=== PATIENT | male | born 1970 | race Two or more races ===

== ENCOUNTER 2024-07-07 08:30 | Day surgery (SDC) | payer MEDICAID, SELFPAY ==
[2024-07-06 14:48] VITALS: BMI 32.8
[2024-07-07] VITALS (14 sets, daily range): BP systolic 106–121; BP diastolic 63–75; PULSE 53–60; RESP 12–18; TEMP 36.5–36.9; O2SAT 95–99; BMI 31.8
--- NOTE | 2024-07-07 10:30 | SUR.PHASEII ---
1030 patient arrived to recovery, report from Angela ZABALA
--- NOTE | 2024-07-07 12:05 | SUR.PHASEII ---
1205 Patient meets discharge criteria from recovery, awake and alert, breathing unlabored, vital signs stable, denies pain, patient ate a pudding and drinking water; tolerating well, denies nausea, patient assisted with dressing into his clothing by his , discharge instructions given to patient and patients with the assistance of the Tajik telephone promotion manager Antonia ID#[id number], patients signed discharge instructions. Patient given all his belognigns prior to discharge, transported via wheelchair and left in a private vehicle.
== END 2024-07-07 12:05 | disposition home or self-care (01) ==
PROVIDERS: PCP Physician Assistant; Referring Provider Surgery; Visit Provider Surgery
PROC: 0DJD8ZZ Inspection of Lower Intestinal Tract, Via Natural or Artificial Opening Endoscopic (ICD-10-PCS; CPT 45378; principal; 2024-07-07 11:30)
DX: Z12.11 Encounter for screening for malignant neoplasm of colon (principal); K57.30 Diverticulosis of large intestine without perforation or abscess without bleeding; Z80.0 Family history of malignant neoplasm of digestive organs
CPT/HCPCS: 45378; J1200; J2250; J3010

== ENCOUNTER 2024-07-27 14:19 | Outpatient (AMB) | payer MEDICAID, SELFPAY ==
--- NOTE | 2024-07-27 14:34 | PD.GSCLVISIT ---
Vital Signs - [facility] 07/27/24 14:35 Height 1.68 m Height Method Stated Weight 90.718 kg Weight Measurement Method Standing Scale BMI 32.1 BP 99/62 Blood Pressure Source Automatic Cuff Blood Pressure Location Right Upper Arm Position Sitting Respiration 19 Pulse 62 Pulse Source Monitor Temp 98.5 F Temp Source Temporal Artery Scan Pulse Oximetry (%) 96 Oxygen Delivery Method Room Air Med/Allergies Allergies & Medications Allergies No Known Allergies Allergy (Verified 07/27/24 14:35) Medication Reconciliation aspirin 81 mg chewable tablet 81 mg PO .QD 07/07/24 [History Confirmed 07/27/24] Held on 07/07/24. Instructions: Resume on 07/08/24. cholecalciferol (vitamin D3) 125 mcg (5,000 unit) capsule 125 mcg PO .QD 07/07/24 [History Confirmed 07/27/24] clopidogrel 75 mg tablet 75 mg PO .QD 07/07/24 [History Confirmed 07/27/24] Held on 07/07/24. Instructions: Resume on 07/08/24. lisinopril 40 mg tablet 40 mg PO .QD 07/07/24 [History Confirmed 07/27/24] metformin 500 mg tablet,extended release 24 hr 500 mg PO QPM 07/07/24 [History Confirmed 07/27/24] metoprolol tartrate 25 mg tablet 25 mg PO Q12H 07/07/24 [History Confirmed 07/27/24] MA Intake Visit Data Collection New Patient or Established: Established Patient (seen at [facility] within 3 years) Reason for Visit:: F/U COLONOSCOPY RESULTS Pain Present Currently: No Emergency Department Technician Required: No PCP or OBGYN visit in last 3 months: Yes Hx Now: No Do You Feel Safe at Home: Yes Authorities Contacted: N/A Smoking Status Smoking Status: Never smoker Immunization / Flu Flu Vaccine in the Last 12 Months: No Flu Vaccine Exclusion Criteria: No Exclusion Criteria Past Medical History Past Medical History NEUROLOGIC: Negative Neurological Disorders or Seizures CARDIAC: Negative Cardiac Disorders or Congestive Heart Failure RESPIRATORY: Negative Chronic Obstructive Pulmonary Disease (COPD) or Asthma GASTROINTESTINAL: Negative Gastrointestinal Disorders GENITOURINARY: Negative Genitourinary Disorders or Renal Disease MUSCULOSKELETAL: Negative Musculoskeletal Disorders ENDOCRINE: Positive Diabetes Mellitus Type 2; Negative Endocrine Disorders or Diabetes Mellitus Type 1 HEMATOLOGIC: Negative Blood Disorders, Anemia or Sickle Cell Disease OTHER HISTORY: Negative Hospitalization, Autoimmune Disease, Down Syndrome, Developmental Delay, Falls, Blood Transfusions, Anesthesia Reactions, MRSA, Chicken Pox, Measles, Mumps or Cancer Family History FAMILY HISTORY: Negative Family Cardiac Disorders Surgical History SURGICAL: Positive Valve Replacement; Negative Endocrine Surgery, Ear Surgery, Nephrectomy, Joint Replacement, Neurologic Surgery or Mastectomy Social History SMOKING STATUS: Smoking status: Never smoker ALCOHOL: Alcohol Intake: Never HOUSING: Housing: House LIVES WITH: Lives With: Spouse Travel Risk Travel Hx Recent Travel: No HPI HPI Narrative 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 Pt reports he feels well overall with no complaints ROS Review of Systems Systems Reviewed: All systems reviewed, normal except as documented Objective/Exam General General Appearance: alert, cooperative and well groomed Resp Respiratory exam: Absent respiratory distress Results Colonoscopy report reviewed: diverticulosis Assessment & Plan Diagnosis / Problem List (1) Encounter to discuss colonoscopy results: Status: Acute Assessment & Plan: 53M s/p screening colonoscopy which was negative aside from diverticulosis. I recommended increased water and fiber intake, and repeat screening in 5 years due to his history of colon CA in his father. All questions were answered and pt expressed understanding Office Procedures GNS Level of Care Nursing/Assessment Patient Status: Established Patient Nursing Assessment/Reassesment: Medication Reconciliation, Update PMH in EMR and Vital Signs Coordination of Care: Complex Care and Chronic Disease 1-5, Education Complex Pt/Fam, Consent,records obtained, informed consent, Results/Orders obtained and Staff clarify orders Established Patient Charge Established Patient Point Assignment: 95 Established Patient Point Charge: EP Level 3 (80-115) Patient Portal Questionaires Social History Living Situation History Housing: House Housing Other:: subacute Tobacco History Smoking Status: Never smoker Alcohol History Alcohol Intake: Never Domestic Abuse History Do You Feel Safe at Home: Yes Review of Systems Report any current symptoms Only answer those that you have currently: Past Medical History Past Medical History Have you ever been diagnosed with any of the following: Neurological Problems Seizures: No Cardiology Problems Congestive Heart Failure: No Respiratory Problems Chronic Obstructive Pulmonary Disease (COPD): No Asthma: No Genital/Urinary Problems Renal Disease: No Endocrine Problems Diabetes Mellitus Type 1: No Diabetes Mellitus Type 2: Yes Blood Problems Anemia: No Sickle Cell Disease: No Other Problems Hospitalization: No Autoimmune Disease: No Down Syndrome: No Developmental Delay: No Falls: No Blood Transfusions: No Anesthesia Reactions: No MRSA: No Chicken Pox: No Measles: No Mumps: No Cancer: No Surgical History Valve Replacement: Yes
[2024-07-27 14:35] VITALS: BP 99/62; PULSE 62; RESP 19; TEMP 36.9; O2SAT 96; BMI 32.1
== END 2024-07-27 15:07 | disposition home or self-care (01) ==
PROVIDERS: PCP Physician Assistant; Referring Provider Physician Assistant; Supervising Provider Surgery; Visit Provider Surgery
DX: Z71.2 Person consulting for explanation of examination or test findings (principal); K57.90 Diverticulosis of intestine, part unspecified, without perforation or abscess without bleeding; Z80.0 Family history of malignant neoplasm of digestive organs
CPT/HCPCS: 99213; G0463

== ENCOUNTER 2025-01-03 19:19 | Emergency (ER) | payer MEDICAID, SELFPAY ==
[2025-01-03] VITALS (7 sets, daily range): BP systolic 104–118; BP diastolic 53–68; PULSE 51–60; RESP 15–20; TEMP 36.6–36.9; O2SAT 92–99; BMI 30.1
--- NOTE | 2025-01-03 20:41 | PD.EDRME ---
Rapid Medical Screening Exam RME Arrival date/time: 01/03/25 19:19 Chief Complaint: Shortness of Breath/Dyspnea Time Seen by Provider: 01/03/25 20:12 Vital signs: Vital Signs Temperature 98.4 F 01/03/25 19:42 Pulse Rate 60 01/03/25 19:42 Respiratory Rate 20 01/03/25 19:42 Blood Pressure 118/68 01/03/25 19:42 Pulse Oximetry (%) 95 01/03/25 19:42 Oxygen Delivery Method Room Air 01/03/25 19:42 Vital signs reviewed by provider: Yes RME Narrative: 54-year-old male presents the ED with complaint of fatigue, weakness, slow heart rate, shortness of breath and mild left anterior chest pressure for 2 weeks. He had an aortic valve replacement 3 years ago by his plant control aide at [facility]. The plant control aide was following him every 3 to 4 months until this past August. He felt he was stable and no longer needed to have regular checkups. He has not contacted his primary care physician or his plant control aide regarding these new symptoms. He denies any fever or chills, nausea, vomiting, or diarrhea. I have greeted and performed a focused initial assessment of this patient. A comprehensive ED assessment and evaluation of the patient, analysis of all test results, and completion of the medical decision making process will be conducted by additional ED providers.
--- NOTE | 2025-01-03 21:21 | PD.EDSOB ---
ED SOB =RME/HPI General Chief Complaint: Shortness of Breath/Dyspnea Stated Complaint: SOB, DIZZINESS, WEAKNESS FOR 2 WEEKS Time Seen by Provider: 01/03/25 20:12 Arrival date/time: 01/03/25 19:19 RME / HPI RME / HPI Narrative: 54-year-old male presents the ED with complaint of fatigue, weakness, slow heart rate, shortness of breath and mild left anterior chest pressure for 2 weeks. He had an aortic valve replacement 3 years ago by his security systems administrator at [facility]. The security systems administrator was following him every 3 to 4 months until this past August. He felt he was stable and no longer needed to have regular checkups. He has not contacted his primary care physician or his security systems administrator regarding these new symptoms. He denies any fever or chills, nausea, vomiting, or diarrhea. I have greeted and performed a focused initial assessment of this patient. A comprehensive ED assessment and evaluation of the patient, analysis of all test results, and completion of the medical decision making process will be conducted by additional ED providers. This section includes all my notes and documentations, including HPI, PE, and ED course. Yo Anaya MD HPI: 54yo male here with complaints of generalized weakness, fatigue, and shortness of breath for the last couple of weeks. No chest pain. No fever. Occasional cough. No tobacco use. No other complaints reported. ROS: All negative except as documented in HPI. Physical Exam: General: Alert and oriented. No acute distress when remaining still. Eyes: Conjunctivae and lids clear. ENT: No nasal congestion. Neck: Supple. Heart: RRR. Lungs: No respiratory distress. Mildly decreased air movement with rhonchi. Abdomen: Soft and nontender. Normal bowel sounds. No distension. No rebound or guarding. Back: No CVA tenderness. Skin: Warm and dry. Neuro: Alert and oriented X 3. I reviewed all diagnostic test results. My interpretation of the EKG is sinus rhythm with no acute ST?T changes. My interpretation of the chest x-ray is increased bronchial markings. My review of the CT chest report is NAD. Blood tests are unremarkable. At this point, diagnoses include lower respiratory infection. Treatment here included Tylenol with Codeine, Duoneb, Solumedrol, and Zithromax. Significant improvement noted. Recommend outpatient management. Based on my best medical judgment, made decision no further evaluation or treatment indicated at this time. Patient understands and agrees to the discharge instructions customized and printed, see below. Discharge instructions from Dr. Anaya: --After extensive evaluation, there is no life-threatening condition. Such as heart attack or pulmonary embolism (blood clots in your lungs) or pneumothorax (collapsed lung). But you have bronchitis. --No physical exertion for 3 days to help rest the lungs. ?No smoking or exposure to smoking or pets or dust or humidity. --Zithromax to kill the germs causing the bronchitis. --Prednisone to help decrease the swelling in the airways. --Albuterol 2 puffs every 4-6 hours for 24 hours to help keep the airways open. Then as needed for cough or shortness of breath. --See a private doctor on 01/08/2025 if not completely better. --Seek immediate medical care with worsening or with any concerns. Yo Anaya MD Related Data Home Medications ?Medication ?Instructions ?Recorded ?Confirmed aspirin 81 mg chewable tablet 81 mg PO .QD 07/07/24 07/27/24 Held on 07/07/24. Instructions: Resume on 07/08/24. cholecalciferol (vitamin D3) 125 125 mcg PO .QD 07/07/24 07/27/24 mcg (5,000 unit) capsule clopidogrel 75 mg tablet 75 mg PO .QD 07/07/24 07/27/24 Held on 07/07/24. Instructions: Resume on 07/08/24. lisinopril 40 mg tablet 40 mg PO .QD 07/07/24 07/27/24 metformin 500 mg tablet,extended 500 mg PO QPM 07/07/24 07/27/24 release 24 hr metoprolol tartrate 25 mg tablet 25 mg PO Q12H 07/07/24 07/27/24 Previous Rx's ?Medication ?Instructions ?Recorded albuterol sulfate 90 mcg/actuation 2 puff inhalation Q6H PRN 01/04/25 aerosol inhaler shortness of breath or wheezing #8.5 grams azithromycin 500 mg tablet 500 mg PO QDAY 3 days #3 tabs 01/04/25 (Zithromax TRI-LEVY) prednisone 50 mg tablet 50 mg PO QDAY #3 tabs 01/04/25 Allergies Allergy/AdvReac Type Severity Reaction Status Date / Time No Known Allergies Allergy Verified 01/03/25 19:20 Review of Systems Review of Systems Systems Reviewed: All systems reviewed, normal except as documented Past Medical History Past Medical History NEUROLOGIC: Negative Neurological Disorders or Seizures CARDIAC: Negative Cardiac Disorders or Congestive Heart Failure RESPIRATORY: Negative Chronic Obstructive Pulmonary Disease (COPD) or Asthma GASTROINTESTINAL: Negative Gastrointestinal Disorders GENITOURINARY: Negative Genitourinary Disorders or Renal Disease MUSCULOSKELETAL: Negative Musculoskeletal Disorders ENDOCRINE: Positive Diabetes Mellitus Type 2; Negative Endocrine Disorders or Diabetes Mellitus Type 1 HEMATOLOGIC: Negative Blood Disorders, Anemia or Sickle Cell Disease OTHER HISTORY: Negative Hospitalization, Autoimmune Disease, Down Syndrome, Developmental Delay, Falls, Blood Transfusions, Anesthesia Reactions, MRSA, Chicken Pox, Measles, Mumps or Cancer Family History FAMILY HISTORY: Negative Family Cardiac Disorders Surgical History SURGICAL: Positive Valve Replacement; Negative Endocrine Surgery, Ear Surgery, Nephrectomy, Joint Replacement, Neurologic Surgery or Mastectomy Social History SMOKING STATUS: Never smoker ED Exam Narrative Physical exam: As noted in HPI. Course Course Course Narrative: CXR is ordered for determinnig the etiology of shortness of breath. Quality Measures none Orders Category Date Time Status Bedside COVID-19 Antigen Test NOW Care 01/03/25 21:26 Completed Bedside Influenza A&B Antigen Test NOW Care 01/03/25 21:[address] Screening NOW Care 01/03/25 21:27 Completed EKG (ED ONLY) *Do not use* NOW Care 01/03/25 21:27 Completed Saline [Insert IV] NOW Care 01/03/25 21:[address] chest wo con Stat Exams 01/03/25 22:41 Completed EKG (ED Only) Stat Exams 01/03/25 21:27 Draft XR chest 1V portable Stat Exams 01/03/25 21:27 Completed BNP [B-Type Natriuretic Peptide] Stat Lab 01/03/25 21:49 Completed Bilirubin,Direct Stat Lab 01/03/25 21:49 Completed CBC Stat Lab 01/03/25 21:49 Completed CMP [Comprehensive Metabolic Panel] Stat Lab 01/03/25 21:49 Completed D-Dimer Stat Lab 01/03/25 21:49 Completed Free T4 (Free Thyroxine) Stat Lab 01/03/25 21:49 Completed Magnesium Stat Lab 01/03/25 21:49 Completed TSH [Thyroid Stimulating Hormone] Stat Lab 01/03/25 21:49 Completed Troponin I Stat Lab 01/03/25 21:49 Completed ACETAMINOPHEN w/COD 300-30 [Tylenol w/Cod #3] Med 01/03/25 23:52 Discontinued 2 tab PO X1 ONE Albuterol/Ipratr Rt Cassidy [Duoneb Rt Cassidy] Med 01/03/25 21:26 Discontinued 3 ml INH X1 ONE Azithromycin Po [Zithromax PO] Med 01/04/25 00:44 Discontinued 500 mg PO X1 ONE MethylPREDNISolone.* [SoluMEDROL Inj] Med 01/03/25 21:26 Discontinued 125 mg IVP X1 ONE Vital Signs Vital signs: Vital Signs Temperature 98.4 F 01/03/25 19:42 Pulse Rate 60 01/03/25 19:42 Respiratory Rate 20 01/03/25 19:42 Blood Pressure 118/68 01/03/25 19:42 Pulse Oximetry (%) 95 01/03/25 19:42 Oxygen Delivery Method Room Air 01/03/25 19:42 Shortness of Breath / Dyspnea MDM Narrative MDM Narrative:: 54yo male here with complaints of generalized weakness, fatigue, and shortness of breath for the last couple of weeks. No chest pain. No fever. Occasional cough. No tobacco use. No other complaints reported. Patient data External records reviewed:: [facility] previous records (Per chart review, patient was admitted here on 11/08/21 for acute febrile illness.) Clinical information provided by:: patient Social determinants that could affect healthcare access:: none Patient has the following chronic illnesses:: DM, HTN, aortic valve replacement How is presenting disease/condition affected by chronic disease/condition?: exacerbated by Evaluation data The following diagnostics were reviewed and interpreted by me:: lab results, radiology exam(s) and EKG tracing(s) Lab and/or radiology exams considered but not ordered:: none Interpretation Summary: I reviewed all diagnostic test results. My interpretation of the EKG is sinus rhythm with no acute ST?T changes. My interpretation of the chest x-ray is increased bronchial markings. My review of the CT chest report is NAD. Blood tests are unremarkable. Medications / Prescriptions Medications or Prescriptions considered but not ordered:: none Medication administrations:: Medication Administration History Discontinued Medications Acetaminophen/Codeine Phosphate (Acetaminophen W/Cod 300-30 Tablet) 2 tab PO X1 ONE Stop: 01/03/25 23:53 Last Admin: 01/04/25 02:05 Dose: 2 tab Documented By: Albuterol/Ipratropium (Albuterol/Ipratropium (Duoneb) Rt Cassidy 3 Ml Nebu) 3 ml INH X1 ONE Stop: 01/03/25 21:27 Last Admin: 01/03/25 21:45 Dose: 3 ml Documented By: BARRY Azithromycin (Azithromycin 250 Mg Tablet) 500 mg PO X1 ONE Stop: 01/04/25 00:45 Last Admin: 01/04/25 02:06 Dose: 500 mg Documented By: Methylprednisolone Sodium Succinate (Methylprednisolone Sod Succ 62.5 Mg/Ml 2ml Vial) 125 mg IVP X1 ONE Stop: 01/03/25 21:27 Last Admin: 01/03/25 22:20 Dose: 125 mg Documented By: ANT Tylenol with Codeine, Duoneb, Solumedrol, and Zithromax. Consultations Consultation(s) initiated? (list below): No Diagnosis Shortness of Breath Differential Diagnosis: acute exacerbation of chronic obstructive airways disease, congestive heart failure, community acquired pneumonia, asthma with exacerbation, pulmonary embolism and other (Lower respiratory infection) Most likely diagnosis given after review of the tests above:: Lower respiratory infection Admission Indicated Admission indicated?: not indicated Explain why admission is indicated or not indicated:: With significant improvement and no condition needing emergent intervention, there was no indication for admission. Admission Request Was there a request for admission?: No Disposition Plan Disposition Plan: Discharge Discharge Attestation Discharge Attestation: The patient and all family members were given an opportunity to ask questions and understood the discharge instructions. Discharge instructions specifically effects, indications for sooner follow up or return to the emergency department, and the expected course of current diagnosis. Patient condition: Stable Discharge Plan Plan Patient Disposition: HOME (Self Care) Prescriptions/Referrals Prescriptions/Med Rec: New prednisone 50 mg tablet 50 mg PO QDAY Qty: 3 0RF albuterol sulfate 90 mcg/actuation HFA aerosol inhaler 2 puff inhalation Q6H PRN (Reason: shortness of breath or wheezing) Qty: 8.5 0RF azithromycin [Zithromax TRI-LEVY] 500 mg tablet 500 mg PO QDAY 3 Days Qty: 3 0RF No Action aspirin 81 mg tablet,chewable 81 mg PO .QD Patient Comments: chew and swallow 1 tablet by mouth once daily metoprolol tartrate 25 mg tablet 25 mg PO Q12H Patient Comments: take 1 tablet by mouth twice a day with food metformin 500 mg tablet extended release 24 hr 500 mg PO QPM Patient Comments: take 1 tablet by mouth every evening cholecalciferol (vitamin D3) 125 mcg (5,000 unit) capsule 125 mcg PO .QD Patient Comments: take 1 capsule by mouth once daily clopidogrel 75 mg tablet 75 mg PO .QD Patient Comments: take 1 tablet by mouth once daily lisinopril 40 mg tablet 40 mg PO .QD Patient Comments: take 1 tablet by mouth once daily Referrals: Sidney Arreaga PA-C [Primary Care Provider] - In 1 week Problem List Clinical Impression: Lower respiratory infection Patient/Caregiver Discharge Instructions Discharge Activity: activity as tolerated Education Materials: ED Bronchitis, Antibiotics (Child) Additional Instructions: Discharge instructions from Dr. Anaya: --After extensive evaluation, there is no life-threatening condition.? Such as heart attack or pulmonary embolism (blood clots in your lungs) or pneumothorax (collapsed lung). But you have bronchitis. --No physical exertion for 3 days to help rest the lungs. ?No smoking or exposure to smoking or pets or dust or humidity. --Zithromax to kill the germs causing the bronchitis. --Prednisone to help decrease the swelling in the airways. --Albuterol 2 puffs every 4-6 hours for 24 hours to help keep the airways open. Then as needed for cough or shortness of breath. --See a private doctor on 01/08/2025 if not completely better. --Seek immediate medical care with worsening or with any concerns. Instrucciones de lia del Dr. Anaya: --Tras urthie evaluaci?n exhaustiva, no se observa ninguna afecci?n potencialmente mortal. [place] un ataque card?aco, ruthie embolia pulmonar (co?gulos de javan en los pulmones) o un neumot?rax (colapso pulmonar). Alison tiene bronquitis. --No realice juan?n esfuerzo f?sico maribel 3 d?as para ayudar a que los pulmones descansen. --No fume ni se exponga al humo, a las mascotas, al polvo ni a la humedad. --Zithromax para eliminar los g?rmenes que causan la bronquitis. --Prednisona para ayudar a disminuir la inflamaci?n de las v?as respiratorias. --Albuterol: 2 inhalaciones cada 4-6 horas maribel 24 horas para ayudar a mantener las v?as respiratorias abiertas. Posteriormente, seg?n sea necesario para la tos o la dificultad para respirar. --Consulte a un m?dico particular el 01/08/2025 si no mejora por completo. --Busque atenci?n m?dica inmediata si la condici?n empeora o tiene alguna inquietud. Print Language: Italian Stand Alone Forms: Lisa Award Info., Patient Portal Info Letter
--- NOTE | 2025-01-03 21:27 | EKG_ITS ---
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: : 1970 Requested By: Yo Castorena Order Number: [id number] Reading MD: Yo Castorena Measurements Intervals [place] Rate: 57 P: 36 SC: 199 QRS: 18 QRSD: 97 T: 74 QT: 431 QTc: 420 Interpretive Statements SINUS BRADYCARDIA POSSIBLE LEFT ATRIAL ENLARGEMENT [-0.1mV P-WAVE IN V1/V2] INCOMPLETE RIGHT BUNDLE BRANCH BLOCK [90+ ms QRS DURATION, TERMINAL R IN V1/V2, 40+ ms S IN I/aVL/V4/V5/V6] NONSPECIFIC T-WAVE ABNORMALITY Compared to ECG 11/09/2021 11:53:56 Incomplete right bundle-branch block now present Sinus tachycardia no longer present Possible ischemia no longer present T-wave abnormality still present /store/S0/[id number]/[id number].pdf
--- NOTE | 2025-01-03 21:27 | XR_ITS ---
Examination: AP chest single view TECHNIQUE: AP portable upright chest single view Date and time: January 03, 2025, 2134 hours Comparison November 10, 2021 INDICATIONS: Shortness of breath chest pressure beginning 2 weeks ago. FINDINGS: Aortic valve replacement satisfactory position Mild prominence left ventricle Mild vascular congestion. No lobar pneumonia or pulmonary edema IMPRESSION: Mild vascular congestion
--- NOTE | 2025-01-03 21:40 | PC.NURSE ---
After assessing pt, i discovered pt has lost some wt over the past few months and currently takes two different meds for HTN. pt does not check blood pressure. before he takes his meds. discussed with pt and his the fact that he should check BP before taking meds.
[2025-01-03] MEDS: ALBUTEROL/IPRATROPIUM (Duoneb) RT SOL 3 ML NEBU INH (21:45)
[2025-01-03 22:12] LABS: Basophils # (Auto) 0.1 Thou/mm3 (0.0-0.2); Basophils % (Auto) 1 % (0-2.5); Eosinophils # (Auto) 0.3 Thou/mm3 (0.0-0.5); Eosinophils % (Auto) 4 % (0-10); Hematocrit 38.0 % (41.0-53.0); Hemoglobin 13.0 g/dL (13.5-16.0); Immature Granulocytes Auto 0.04 Thou/mm3 (0.00-0.00); Lymphocytes # (Auto) 2.4 Thou/mm3 (1.0-4.8); Lymphocytes % (Auto) 36 % (10-50); Mean Corpuscular HGB Conc 34.2 g/dl (31.0-37.0); Mean Corpuscular Hemoglobin 30.7 pg (25.0-35.0); Mean Corpuscular Volume 90 fL (80-100); Monocytes # (Auto) 0.7 Thou/mm3 (0.0-0.8); Monocytes % (Auto) 10 % (0-12); Neutrophils # (Auto) 3.3 Thou/mm3 (1.8-7.7); Neutrophils % (Auto) 49 % (37-80); Nucleated Red Blood Cell # 0.00 Thou/mm3 (0.00-0.00); Nucleated Red Blood Cell % 0 /100 WBC (0); Platelet Count 178 Thou/mm3 (140-440); RDW Standard Deviation 43.8 fL (35.1-43.9); Red Blood Count 4.24 Miln/mm3 (4.50-5.90); White Blood Count 6.8 Thou/mm3 (3.8-10.6)
[2025-01-03] MEDS: MethylPREDNISolone SOD SUCC 62.5 MG/ML 2ML VIAL 125 MG IVP (22:20)
[2025-01-03 22:37] LABS: D-Dimer < 250 ng/mL (<600)
[2025-01-03 22:40] LABS: Alanine Aminotransferase 18 U/L (10-49); Albumin, Serum 4.1 gm/dL (3.5-5.0); Albumin/Globulin Ratio 1.9 (1.2-2.2); Alkaline Phosphatase 91 U/L (46-116); Anion Gap 10 (7-16); Aspartate Amino Transferase 19 U/L (0-34); B-Type Natriuretic Peptide 37 pg/mL (0-100); BUN/Creatinine Ratio 11 Ratio (12-20); Bilirubin,Direct < 0.1 mg/dL (0.0-0.3); Bilirubin,Total 0.2 mg/dL (0.3-1.2); Blood Urea Nitrogen 12 mg/dL (9-23); Calcium 8.9 mg/dL (8.3-10.6); Calcium (Corrected) 8.9 mg/dL (8.5-10.1); Carbon Dioxide 26.3 mMol/L (20.0-31.0); Chloride 109 mMol/L (98-107); Creatinine (Component) 1.1 mg/dL (0.6-1.3); Estimated Creatinine Clearance 85.5 mL/min (>60); Free T4 (Free Thyroxine) 0.97 ng/dL (0.89-1.76); Globulin 2.2 gm/dL (2.3-3.5); Glucose 143 mg/dL (74-106); Magnesium 2.0 mg/dL (1.6-2.6); Osmolality,Calculated 290 (275-295); Potassium 3.8 mMol/L (3.4-5.1); Sodium 145 mMol/L (136-145); Thyroid Stimulating Hormone 3.46 uIU/mL (0.55-4.78); Total Protein 6.3 gm/dL (5.7-8.2); Troponin I < 0.020 ng/mL (0.0-0.045); eGFR > 60 See Note
--- NOTE | 2025-01-03 22:41 | XR_ITS ---
Examination: CT chest, without intravenous contrast. Sagittal and coronal 2-D reconstructions. Exam date and time: January 03, 2025 11:10 PM Comparison comparison October 31, 2021 INDICATIONS: Shortness of breath weakness 2 weeks CTDI:vol (mGy) 17.1 DLP: (mGycm) 771 Technique: Multiple 3.0 mm axial sections of the chest to been obtained. Bone and lung density settings are obtained. Sagittal and coronal 2-D reconstructions have been obtained. Low dose protocols were performed. One or more of the following dose reduction techniques were used; automated exposure control, adjustment of the mA and/or KV according to patient size, use of iterative reconstruction technique. Findings: No thoracic aortic aneurysmal dilatation. Pulmonary artery segments are not enlarged. Mild enlargement cardiac contour No paratracheal tracheobronchial or bronchopulmonary adenopathy The pulmonary mass left upper lobe on the October 31, 2021 exam is no longer identified No pneumonia or pulmonary edema No visualized liver or splenic lesion Normal pancreas Kidneys partially visualized no hydronephrosis IMPRESSION: The pulmonary mass left upper lobe noted on the October 31, 2021 exam is no longer identified No mediastinal lymphadenopathy No pneumonia or pulmonary edema
[2025-01-04 00:06] VITALS: BP 114/59; PULSE 63; RESP 16; TEMP 37.3; O2SAT 94
[2025-01-04 01:00] VITALS: BP 108/52; PULSE 53; RESP 20; O2SAT 92
[2025-01-04 02:01] VITALS: BP 106/50; PULSE 60; RESP 15; O2SAT 92
[2025-01-04 02:03] VITALS: BP 108/62; PULSE 58; RESP 18; O2SAT 91
[2025-01-04] MEDS: ACETAMINOPHEN w/COD 300-30 TABLET 2 TAB PO (02:05)
[2025-01-04] MEDS: AZITHROMYCIN 250 MG TABLET 500 MG PO (02:06)
--- NOTE | 2025-01-04 02:29 | PC.NURSE ---
pt denies sx since soon after he arived. at bedside. alessandro maloneER staff assisted with communication. pt discharged ambulatory without dizziness.
== END 2025-01-04 02:30 | disposition home or self-care (01) ==
PROVIDERS: Emergency Provider Emergency Medicine; PCP Physician Assistant
DX: J22 Unspecified acute lower respiratory infection (principal); I10 Essential (primary) hypertension; R00.1 Bradycardia, unspecified; I45.10 Unspecified right bundle-branch block
CPT/HCPCS: 36415; 71045; 71250; 80053; 82248; 83735; 83880; 84439; 84443; 84484; 85025; 85379; 93005; 94640; 96374; 99283; A9270; J2919

== ENCOUNTER 2025-01-26 13:47 | Outpatient (AMB) | payer MEDICAID, SELFPAY ==
--- NOTE | 2025-01-26 13:51 | ORTHONT_ITS ---
Vital signs 01/26/25 14:05 Height 1.7 m Height Method Measured Weight 89.499 kg Weight Measurement Method Standing Scale BMI 30.9 BP 138/84 H Blood Pressure Source Automatic Cuff Blood Pressure Location Left Upper Arm Position Sitting Respiration 18 Pulse 62 Pulse Source Monitor Temp 97.8 F Temp Source Temporal Artery Scan Pulse Oximetry (%) 95 Oxygen Delivery Method Room Air Med/Allergies Allergies & Medications Allergies No Known Allergies Allergy (Verified 01/26/25 14:07) Medication Reconciliation aspirin 81 mg chewable tablet 81 mg PO .QD 07/07/24 [History Confirmed 01/26/25] Held on 07/07/24. Instructions: Resume on 07/08/24. cholecalciferol (vitamin D3) 125 mcg (5,000 unit) capsule 125 mcg PO .QD 07/07/24 [History Confirmed 01/26/25] clopidogrel 75 mg tablet 75 mg PO .QD 07/07/24 [History Confirmed 01/26/25] Held on 07/07/24. Instructions: Resume on 07/08/24. lisinopril 40 mg tablet 40 mg PO .QD 07/07/24 [History Confirmed 01/26/25] metformin 500 mg tablet,extended release 24 hr 500 mg PO QPM 07/07/24 [History Confirmed 01/26/25] metoprolol tartrate 25 mg tablet 25 mg PO Q12H 07/07/24 [History Confirmed 01/26/25] albuterol sulfate 90 mcg/actuation aerosol inhaler 2 puff inhalation Q6H PRN shortness of breath or wheezing #8.5 grams 01/04/25 [Rx Confirmed 01/26/25] Exam Exam Breathing is nonlabored. Patient has a normal mood and affect. Bilateral extremities were evaluated and demonstrates sensation intact to light touch. Palpable pedal pulses are present. No significant edema is present. Bilateral hips were examined. The patient has no pain with log roll of the hips. Internal rotation to 30 degrees and external rotation to 30 degrees is painless. Negative FADIR. Left knee was examined today. The left knee is in reasonable alignment. Range of motion from 0-120 degrees. Knee is stable to varus and valgus as well as AP translation with <5mm. Patient has a negative McMurrays. There is no pain with patellofemoral compression and no crepitus noted. The knee is nontender to palpation. The right knee was also examined. The right knee is in varus alignment. Range of motion from 0-115 degrees. Knee is stable to varus and valgus as well as AP translation with <5mm. Patient has a negative McMurrays. There is no pain with patellofemoral compression and no crepitus noted. The knee is tender to palpation medially. Assessment and Plan Problem List (1) Arthritis of knee, right: Status: Acute Plan: Patient is a pleasant 54-year-old male with Right knee pain and right knee arthritis. We discussed different treatment options. I would recommend an anti- inflammatory And injections and he not had conservative treatment. I like to see him with weightbearing x-rays like as well Office Procedures GNS Level of Care Nursing/Assessment Patient Status: Established Patient Nursing Assessment/Reassesment: Medication Reconciliation, Orthostatic Vitals, Update PMH in EMR and Vital Signs Coordination of Care: Complex Care and Chronic Disease 1-5, Education Complex Pt/Fam, Consent,records obtained, informed consent, Results/Orders obtained and Staff clarify orders Special Needs: Language special needs Established Patient Charge Established Patient Point Assignment: 105 Established Patient Point Charge: EP Level 3 (80-115) MA Intake Visit Data Collection New Patient or Established: New Patient (never been to [facility]) Reason for Visit:: RIGHT KNEE PAIN Seen by Clinical Staff ONLY (RN/MA): No Head Of Human Resources Required: Yes PCP or OBGYN visit in last 3 months: Yes Hx Now: No Do You Feel Safe at Home: Yes Authorities Contacted: N/A Questionairres Past Medical History Past Medical History Have you ever been diagnosed with any of the following: Neurological Problems Seizures: No Cardiology Problems Congestive Heart Failure: No Respiratory Problems Chronic Obstructive Pulmonary Disease (COPD): No Asthma: No Genital/Urinary Problems Renal Disease: No Endocrine Problems Diabetes Mellitus Type 1: No Diabetes Mellitus Type 2: Yes Blood Problems Anemia: No Sickle Cell Disease: No Other Problems Hospitalization: No Down Syndrome: No Developmental Delay: No Falls: No Blood Transfusions: No Anesthesia Reactions: No MRSA: No Chicken Pox: No Measles: No Mumps: No Cancer: No Surgical History Valve Replacement: Yes Subjective Visit Visit for: new patient and knee Immunization / Flu Flu Vaccine in the Last 12 Months: Yes Flu Vaccine Exclusion Criteria: Already Received History of Present Illness Chief complaint: RIGHT KNEE PAIN Date of injury / onset of symptoms: 20 YEARS Patient is a 54-year-old male with right knee pain and right knee arthritis. X- ray reports does have significant arthritis. He has tried physical therapy for several sessions. Has not had any injections. 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
--- NOTE | 2025-01-26 14:04 | XR_ITS ---
Examination: Bilateral AP knees single view Right knee PA lateral axial 3 views Technique: Bilateral AP knees standing single view Right knee upright PA flexion, upright lateral, axial right knee 3 views total 4 views Date and time: January 26 thousand 25, 1410 hrs. Indications: Right knee pain beginning 20 years ago. Findings: Advanced right knee tricompartment osteoarthritis Severe narrowing medial joint space right knee Moderate to advanced osteoarthritis medial joint space left knee and lateral joint space left knee No fractures. Impression: Advanced right knee tricompartment osteoarthritis, including severe narrowing medial joint space, [id number]
[2025-01-26 14:05] VITALS: BP 138/84; PULSE 62; RESP 18; TEMP 36.6; O2SAT 95; BMI 30.9
== END 2025-01-26 14:10 | disposition home or self-care (01) ==
LOC: HODSRG 13:47
PROVIDERS: PCP Physician Assistant; Referring Provider Physician Assistant; Supervising Provider Orthopaedic Surgery Adult Reconstructive Orthopaedic Surgery; Visit Provider Orthopaedic Surgery Adult Reconstructive Orthopaedic Surgery
DX: M17.11 Unilateral primary osteoarthritis, right knee (principal); M25.561 Pain in right knee; E11.9 Type 2 diabetes mellitus without complications
CPT/HCPCS: 73564; 99213; G0463

== ENCOUNTER 2025-02-11 14:39 | Outpatient (AMB) | payer MEDICAID, SELFPAY ==
--- NOTE | 2025-02-11 14:58 | ORTHONT_ITS ---
Vital signs 02/11/25 15:05 Height 1.7 m Height Method Stated Weight 90.775 kg Weight Measurement Method Standing Scale BMI 31.4 BP 128/76 Blood Pressure Source Automatic Cuff Blood Pressure Location Left Upper Arm Position Sitting Respiration 18 Pulse 57 L Pulse Source Monitor Temp 97.6 F Temp Source Temporal Artery Scan Pulse Oximetry (%) 95 Oxygen Delivery Method Room Air Med/Allergies Allergies & Medications Allergies No Known Allergies Allergy (Verified 02/11/25 15:10) Medication Reconciliation aspirin 81 mg chewable tablet 81 mg PO .QD 07/07/24 [History Confirmed 02/11/25] Held on 07/07/24. Instructions: Resume on 07/08/24. cholecalciferol (vitamin D3) 125 mcg (5,000 unit) capsule 125 mcg PO .QD 07/07/24 [History Confirmed 02/11/25] clopidogrel 75 mg tablet 75 mg PO .QD 07/07/24 [History Confirmed 02/11/25] Held on 07/07/24. Instructions: Resume on 07/08/24. lisinopril 40 mg tablet 40 mg PO .QD 07/07/24 [History Confirmed 02/11/25] metformin 500 mg tablet,extended release 24 hr 500 mg PO QPM 07/07/24 [History Confirmed 02/11/25] metoprolol tartrate 25 mg tablet 25 mg PO Q12H 07/07/24 [History Confirmed 02/11/25] albuterol sulfate 90 mcg/actuation aerosol inhaler 2 puff inhalation Q6H PRN shortness of breath or wheezing #8.5 grams 01/04/25 [Rx Confirmed 02/11/25] Exam Exam Breathing is nonlabored. Patient has a normal mood and affect. Bilateral extremities were evaluated and demonstrates sensation intact to light touch. Palpable pedal pulses are present. No significant edema is present. Bilateral hips were examined. The patient has no pain with log roll of the hips. Internal rotation to 30 degrees and external rotation to 30 degrees is painless. Negative FADIR. Left knee was examined today. The left knee is in reasonable alignment. Range of motion from 0-120 degrees. Knee is stable to varus and valgus as well as AP translation with <5mm. Patient has a negative McMurrays. There is no pain with patellofemoral compression and no crepitus noted. The knee is nontender to palpation. The right knee was also examined. The right knee is in varus alignment. Range of motion from 0-115 degrees. Knee is stable to varus and valgus as well as AP translation with <5mm. Patient has a negative McMurrays. There is no pain with patellofemoral compression and no crepitus noted. The knee is tender to palpation medially. X-rays demonstrate [id number] arthritis of the right knee with complete obliteration of medial joint space and significant varus deformity Assessment and Plan Problem List (1) Arthritis of knee, right: Status: Acute Plan: Patient is a pleasant 54-year-old male with Right knee pain and right knee arthritis. We discussed different treatment options. I would recommend an anti- inflammatory And injections and he not had conservative treatment. We will plan for a cortisone Recommend knee cortisone injection as patient would like to proceed with conservative treatment at this time. The risks and benefits of the procedure were reviewed with the patient and patient gave verbal consent to continue with the procedure. Procedure: performed by Dr. Domingo Using sterile technique the Right knee was thoroughly prepped with alcohol, and approximately 1 cc of Depo-Medrol 80mg/mL and 4 cc of 0.2% ropivacaine was injected without resistance into the medial tibial femoral joint space. The patient tolerated the procedure. Office Procedures GNS Level of Care Nursing/Assessment Patient Status: Established Patient Nursing Assessment/Reassesment: Medication Reconciliation, Orthostatic Vitals, Update PMH in EMR and Vital Signs Coordination of Care: Complex Care and Chronic Disease 1-5, Education Complex Pt/Fam, Consent,records obtained, informed consent, Results/Orders obtained and Staff clarify orders Special Needs: Language special needs Established Patient Charge Established Patient Point Assignment: 105 Established Patient Point Charge: EP Level 3 (80-115) Surgical Proc/IM SQ injection Major Surgical Procedure: Yes (KNEE INJECTION ) Medication Given Medication Given Medication Given: Yes Documented Dose Given: 1 Route: Infiitration Medication Given Medication Given Medication Given: Yes Documented Dose Given: 4 Route: Infiitration Office Meds methylprednisolone acetate 80 mg/mL suspension for injection Performing Provider: Shade Domingo MD Performing Location: [facility] Administered by: Shade Domingo MD on 02/11/25 15:10 Dose Route Admin Location Dispensed Lot Number Expiration Date Pack age ND NDC [employer] Agent 80 mg intra-articular KNEE 1 mL [id number] 10/31/26 [address]-2 [id number] [employer] ropivacaine (PF) 2 mg/mL (0.2 %) injection solution Performing Provider: Shade Domingo MD Performing Location: [facility] Administered by: Shade Domingo MD on 02/11/25 15:10 Dose Route Admin Location Dispensed Lot Number Expiration Date Pack age [facility] Contract Design Agent 20 mL Infiltration KNEE 20 mL [id number] 07/03/27 [id number] [facility] Intake Visit Data Collection New Patient or Established: Established Patient (seen at [facility] within 3 years) Reason for Visit:: RIGHT KNEE PAIN/XRAY RESULTS/INJECTION Seen by Clinical Staff ONLY (RN/MA): No [employer] Required: Yes PCP or OBGYN visit in last 3 months: Yes Hx Now: No Do You Feel Safe at Home: Yes Authorities Contacted: N/A Questionairres Past Medical History Past Medical History Have you ever been diagnosed with any of the following: Neurological Problems Seizures: No Cardiology Problems Congestive Heart Failure: No Respiratory Problems Chronic Obstructive Pulmonary Disease (COPD): No Asthma: No Genital/Urinary Problems Renal Disease: No Endocrine Problems Diabetes Mellitus Type 1: No Diabetes Mellitus Type 2: Yes Blood Problems Anemia: No Sickle Cell Disease: No Other Problems Hospitalization: No Down Syndrome: No Developmental Delay: No Falls: No Blood Transfusions: No Anesthesia Reactions: No MRSA: No Chicken Pox: No Measles: No Mumps: No Cancer: No Surgical History Valve Replacement: Yes Subjective Visit Visit for: follow up visit, knee (RIGHT), x-rays (RESULTS) and injections Immunization / Flu Flu Vaccine in the Last 12 Months: Yes Flu Vaccine Exclusion Criteria: Already Received History of Present Illness Chief complaint: RIGHT KNEE PAIN/XRAY RESULTS/INJ Date of injury / onset of symptoms: 20 YEARS Patient is a 54-year-old male with right knee pain and right knee arthritis. X- ray reports does have significant arthritis. He has tried physical therapy for several sessions. Has not had any injections. 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 He reports that he is stable and is on aspirin. 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
[2025-02-11 15:05] VITALS: BP 128/76; PULSE 57; RESP 18; TEMP 36.4; O2SAT 95; BMI 31.4
== END 2025-02-11 15:09 | disposition home or self-care (01) ==
LOC: HODSRG 14:39
PROVIDERS: PCP Physician Assistant; Referring Provider Physician Assistant; Supervising Provider Orthopaedic Surgery Adult Reconstructive Orthopaedic Surgery; Visit Provider Orthopaedic Surgery Adult Reconstructive Orthopaedic Surgery
DX: M17.11 Unilateral primary osteoarthritis, right knee (principal); M25.561 Pain in right knee; E11.9 Type 2 diabetes mellitus without complications
CPT/HCPCS: 20610; 99213; J1010; J2795; G0463

== ENCOUNTER → 2025-04-22 | Outpatient (CLI) | payer MEDICAID, SELFPAY ==
--- NOTE | 2025-04-22 15:29 | XR_ITS ---
EXAMINATION: PA lateral chest 2 views TECHNIQUE: Upright PA lateral chest 2 views Date and time: April 22, 2025, 1537 hours INDICATIONS: Chest pain beginning 2 months ago. FINDINGS: Prosthetic aortic valve satisfactory position Median sternotomy wires. Normal heart size No pneumothorax pneumonia or pulmonary edema. Clavicles ribs thoracic vertebral bodies appear intact IMPRESSION: No active disease
== END | disposition home or self-care (01) ==
LOC: CDIM 15:21
PROVIDERS: PCP Nurse Practitioner Primary Care; Referring Provider Nurse Practitioner Primary Care; Visit Provider Nurse Practitioner Primary Care
DX: R07.9 Chest pain, unspecified (principal)
CPT/HCPCS: 71046